=== PATIENT | female | born 1995 | race Caucasian/White ===

== ENCOUNTER 2018-01-30 11:35 | Emergency (ER) | payer BC ==
[~2018-01-30] VITALS: Ht 160 cm; Wt 93.9 kg
[2018-01-30 13:32] VITALS: BP 132/77
== END 2018-01-30 13:33 | disposition home or self-care (01) ==
LOC: M.ERS 11:35
DX: J02.8 Acute pharyngitis due to other specified organisms (principal); B97.89 Other viral agents as the cause of diseases classified elsewhere

== ENCOUNTER 2018-06-01 12:36 | Emergency (ER) | payer BC ==
[~2018-06-01] VITALS: Ht 160 cm; Wt 86.2 kg
[2018-06-01] MEDS ORDERED: FLONASE 0.05%50 MCG NASAL (12:44)
[2018-06-01] MEDS ORDERED: DOXYCYCLINE 10100 MG PO (13:09)
[2018-06-01 13:15] VITALS: BP 128/78
== END 2018-06-01 13:15 | disposition home or self-care (01) ==
LOC: M.ERS 12:36
DX: J32.9 Chronic sinusitis, unspecified (principal); Z88.8 Allergy status to other drugs, medicaments and biological substances